=== PATIENT | male | born 1985 | race Caucasian/White ===

== ENCOUNTER 2023-09-23 05:23 | Emergency (ER) | payer BC, SELFPAY ==
[2023-09-23] VITALS (28 sets, daily range): BP systolic 115–140; BP diastolic 65–87; PULSE 45–81; RESP 16; TEMP 37.1; O2SAT 99–100; BMI 27.9
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
[2023-09-23 06:19] LABS: Albumin* 4.4 g/dL (3.3-5.0); Chloride* 106 mmol/L (96-114); Sodium* 138 mmol/L (135-149)
[2023-09-23 06:20] LABS: Potassium* 3.8 mmol/L (3.6-5.1)
[2023-09-23 06:22] LABS: Anion Gap 6 mEq/L (7-15); Aspartate Amino Transferase* 55 U/L (12-35); Bilirubin Total* 1.1 mg/dL (0.1-1.5); Blood Urea Nitrogen* 27 mg/dL (5-24); Carbon Dioxide* 26 mmol/L (20-32); Est. Creatinine Clearance* 107.72; Estimated Glomerular Filt Rate 99 ml/min; Total Protein* 7.7 g/dL (6.0-8.3)
[2023-09-23 06:23] LABS: Alanine Aminotransferase* 42 U/L (4-50); Alkaline Phosphatase* 71 U/L (40-150); Glucose* 115 mg/dL (60-115)
[2023-09-23 06:25] LABS: Basophils Absolute Auto 0.02 K/uL (0.00-0.30); Basophils Percent Auto 0.4 % (0.0-3.0); Eosinophils Absolute Auto 0.11 K/uL (0.00-0.50); Eosinophils Percent Auto 2.3 % (0.0-7.0); Hematocrit 41.5 % (37.0-53.0); Hemoglobin* 13.9 gm/dL (13.5-17.5); Lymphocytes Absolute Auto 1.58 K/uL (0.90-2.90); Lymphocytes Percent Auto 33.1 % (20-44); Mean Corpuscular HGB Conc 34 gm/dL (32-36); Mean Corpuscular Hemoglobin 29 pg (26-34); Mean Corpuscular Volume 87 fL (80-100); Monocytes Percent Auto 9.8 % (0.0-11.0); Neutrophils Percent Auto 54.4 % (42.0-72.0); Platelet Count* 228 K/uL (140-440); RDW Coefficient of Variation % 12.4 % (11.5-15.5); Red Blood Count 4.78 m/uL (4.30-5.90); White Blood Count* 4.78 K/uL (4.50-11.00)
[2023-09-23] MEDS: 0.9 % SODIUM CHLORIDE 1000 ml 1,000 ML IV (06:25)
[2023-09-23 06:34] LABS: Slide Review Reflex No
[2023-09-23 06:49] LABS: Appearance Urine Clear (Clear); Bilirubin Urine Negative (Negative); Blood Urine Negative (Negative); Color Urine Yellow (Yellow); Glucose Urine Negative (Negative); Ketones Urine Negative (Negative); Leukocyte Esterase Urine Negative (Negative); Nitrite Urine Negative (Negative); Protein Urine Negative (Negative); Specific Gravity Urine 1.025 (1.000-1.030); Urobilinogen Urine 0.2 (0.2-1.0); pH Urine 5.5 (5.0-8.5)
[2023-09-23 07:25] LABS: RBC Urine 0-2 (0-2); Squamous Epithelial Cell Urine Few (None-Few); WBC Urine 0-2 (0-5)
[2023-09-23] MEDS: ACETAMINOPHEN 500 MG TABLET 1000 MG PO (07:33)
--- NOTE | 2023-09-23 11:00 | XR_ITS ---
Patient: DEEPTHI CERDA Facility:?[facility] Patient ID:?[id number] Site Patient ID:?[id number]. Site :?1985 Study:?XRay-Chest -09/23/2023 11:14:52 AM Ordering Physician:ASHWIN Final Report: INDICATION: Follow-up right pneumothorax. COMPARISON: 09/23/2023 at 0541 hours TECHNIQUE: 2 views (3 images). FINDINGS: Three views of the chest performed at 1104, 1105 and 1106 hours. Medical Devices: Oxygen tubing is superimposed upon the patient. Lung Volumes: Adequate inspiration. No significant atelectasis. Lungs: Clear lungs. Pleura and Pleural spaces: Persistent right apical pneumothorax. The right apical visceral pleural line overlaps and is obscured by the right posterior 3rd rib. Mediastinum: Stable cardiomediastinal silhouette. Bony Thorax and Soft Tissues: No significant incidental findings. IMPRESSION: Unchanged right apical pneumothorax. Dictated by Daren Frye MD @ 09/23/2023 11:31:23 AM Signed by:?Daren Frye MD @09/23/2023 11:31:23 AM (Electronic Signature)
== END 2023-09-23 13:33 | disposition home or self-care (01) ==
PROVIDERS: Emergency Provider Family Medicine; PCP Family Medicine
DX: S13.4XXA Sprain of ligaments of cervical spine, initial encounter (principal); J93.9 Pneumothorax, unspecified; R51.9 Headache, unspecified; V20.09XA Other motorcycle driver injured in collision with pedestrian or animal in nontraffic accident, initial encounter
CPT/HCPCS: 36415; 70450; 71046; 71260; 72125; 74177; 80048; 80076; 81001; 84484; 85025; 93005; 99284; 99285; 99291; A9270; G0390; J7030; Q9967